=== PATIENT | female | born 2000 | race Caucasian/White ===

== ENCOUNTER 2021-11-28 08:04 | Outpatient (CLI) | payer OTHER, SELFPAY ==
--- NOTE | 2021-11-28 10:01 | XRR_ITS ---
PROCEDURE INFORMATION: Exam: XR Chest Exam date and time: 11/28/2021 10:18 AM Age: 21 years old Clinical indication: Screening exam; Positive tb skin testing; Patient HX: Positive tb test, nipple piercings will not come out. ; Additional info: Positive tb test, positive tb skin test 1 week ago. TECHNIQUE: Imaging protocol: Radiologic exam of the chest. Views: 2 views. COMPARISON: No relevant prior studies available. FINDINGS: Lungs: No focal lung consolidation, cavity formation, or calcification. Pleural spaces: No pleural effusion or pneumothorax. Heart/Mediastinum: The cardiac silhouette is not enlarged. The mediastinal contours are normal. Bones/joints: No acute osseous abnormality. XR/XR chest 2V* [id number] IMPRESSION: No sign of active tuberculosis.
[2021-12-01 12:22] LABS: Quantiferon Mitogen >10.00 IU/mL; Quantiferon Nil 0.04 IU/mL; Quantiferon Plus TB1 0.02 IU/mL; Quantiferon Plus TB2 0.01 IU/mL; Quantiferon TB Gold NEGATIVE (NEGATIVE)
== END 2021-11-28 08:05 | disposition home or self-care (01) ==
PROVIDERS: PCP Family Medicine; Visit Provider Family Medicine Adult Medicine
DX: R76.11 Nonspecific reaction to tuberculin skin test without active tuberculosis (principal)
CPT/HCPCS: 71046; 86480